=== PATIENT | female | born 1980 | race Asian ===

== ENCOUNTER 2016-06-22 11:30 | Outpatient (CLI) | payer OTHER | END 2016-06-22 23:59 | DX: M25.50 Pain in unspecified joint (principal) ==

== ENCOUNTER 2016-07-30 08:08 | Outpatient (CLI) | payer OTHER | END 2016-07-30 08:09 | disposition home or self-care (01) | DX: T83.89XA Other specified complication of genitourinary prosthetic devices, implants and grafts, initial encounter (principal) ==

== ENCOUNTER 2017-03-28 09:55 | Outpatient (CLI) | payer OTHER ==
--- NOTE | 2017-03-28 11:17 | Ultrasound Report ---
PELVIC ULTRASOUND: 03/28/2017 COMPARISON: Pelvic ultrasound 07/30/2016. INDICATION: Evaluate intrauterine device for possible extrauterine location. TECHNIQUE: Sonographic evaluation of the pelvis was performed using transabdominal and endovaginal t echnique. FINDINGS: The uterus is retroverted. Intrauterine device is posterior to the anterior uterus fundus-body. Please note that because the ut erus is retroverted, the anterior uterus is located posteriorly in relation to the patient's pelvis. Also, the uterus is canted to the patient's right, such that the intrauterine device appears to be i ntraperitoneal, posterior to the uterus, and to the left of the uterus. There is no free fluid in the pelvis. The uterus appears otherwise unremarkable without masses. The endometrial stripe is normal in thickn ess measuring 6 mm. The ovaries are grossly unremarkable with normal color Doppler flow. IMPRESSION: INTRAUTERINE DEVICE APPEARS TO BE IN AN INTRAPERITONEAL LOCATION POSTERIOR AND TO THE LE FT OF THE UTERUS. HOWEVER, THIS MAY BE BETTER VISUALIZED ON CT IF CLINICALLY DESIRED. JOB #: [id number] EXT JOB #:[id number]
== END 2017-03-28 09:56 | disposition home or self-care (01) ==
LOC: DI 09:55
PROVIDERS: ATTEND Obstetrics & Gynecology
DX: Z30.431 Encounter for routine checking of intrauterine contraceptive device (principal)
CPT/HCPCS: 76830; 76856

== ENCOUNTER 2017-04-26 11:15 | Outpatient (CLI) | payer OTHER | END 2017-04-26 11:16 | disposition home or self-care (01) | LOC: LAB.R 11:15 | PROVIDERS: ATTEND Obstetrics & Gynecology | DX: B37.3 Candidiasis of vulva and vagina (principal) | CPT/HCPCS: 87480; 87510; 87660 ==

== ENCOUNTER 2017-05-22 10:50 | Day surgery (SDC) | payer OTHER ==
--- NOTE | 2017-05-20 15:53 | PREOP HISTORY & PHYSICAL ---
A 36-year-old G1, P1-0-0-1. DATE OF ADMISSION AND SURGERY: 05/22/2017 HISTORY OF PRESENT ILLNESS: Alessandro is a patient of Xanedr Pierson formerly [facility]. After delivery of her son, Alessandro has been noting low back pain. A lumbar x-ray revealed misplaced intrauterine device. This IUD was placed at her 6-week visit. Then, had an 03/28/2017 pelvic ultrasound which revealed a retroverted uterus and the IUD is located posterior and left to the uterus. There is no free fluid. Endometrial stripe measured 6 mm. Ovaries are grossly normal. Discussed with them my recommendation is to proceed with a laparoscopic removal of her Mirena IUD. I discussed with her the risks, benefits, alternatives, indications, expectations of surgery, including our discussion for the risk of hemorrhage, infection and damage to surrounding organs, which may be an inadvertent laceration. Cauterization or ligation of the adjacent ureters, intestines and bladder. After Alessandro and her , Rian's questions were answered to their satisfaction, she verbalized her desire to proceed with surgery. Consent forms have been signed. Currently, Alessandro doing well, but does note that she has a continued vaginitis that was addressed at her last meeting. An affirm returned 2 days after her appointment with me, which showed bacterial vaginosis. A prescription for Flagyl was called in to [facility], but apparently her pharmacy of choice was [facility]. I did fax a new prescription of Flagyl to [facility] for Alessandro. PAST MEDICAL HISTORY: None. She denies any hypertension, diabetes or thyroid disorder. PAST SURGICAL HISTORY: None. ALLERGIES: PEANUTS AND WHEN SHE HAS A RASH AROUND HER MOUTH. MEDICATIONS: None. SOCIAL HISTORY: She denies any tobacco, alcohol or illicit drug use. Alessandro and Rian have a little boy named Ras. PAST SURGICAL HISTORY: 1. Term spontaneous vaginal delivery, weighing 7 pounds 9 ounces. She is considering having more children. Currently her grandmother is taking care of Ras. PAST GYNECOLOGICAL HISTORY: Within normal limits and the last one was done in [place]. She denies any sexually transmitted diseases. With respect to contraception, she does desire to use condoms. FAMILY HISTORY: She denies any female carcinomas. REVIEW OF SYSTEMS: Negative unless otherwise stated. PHYSICAL EXAMINATION VITAL SIGNS: Height is 60 inches. Blood pressure 118/58. Weight is 131 pounds. BMI is 25.7. GENERAL: Alessandro is a well-developed, well-nourished, [place] female in no apparent distress. She is alert and oriented x3. Alessandro does speak limited Bulgarian and is currently using her , Rian, to translate. HEENT: Within normal limits. HEART: Rate is regular. No murmurs or rubs. PULMONARY: Clear to auscultation bilaterally. ABDOMEN: Soft, nontender. No peritoneal signs. ASSESSMENT AND PLAN: 1. A 36-year-old G1, P1-0-0-1. 2. Malpositioned intrauterine device located intraabdominally. PLAN: 1. We will proceed to a laparoscopic removal of her Mirena IUD. 2. Consent forms have been signed. 3. Handwritten prescription for Vicodin is available to [facility] and prescriptions for ibuprofen and Tylenol have been faxed to [facility]' for postoperative pain management. In addition, a prescription for Flagyl has been sent to [facility] to treat her bacterial Vaginosis/ 4. [facility] to see me in two weeks for routine postoperative examination. CC: Beatriz Álvarez TD: 05/20/2017 13:56 MTDClara
[2017-05-22] MEDS ORDERED: CELECOXIB 100 MG CAPSULE PO ONE (11:03)
[2017-05-22] MEDS ORDERED: LACTATED RINGERS 1,000 ML IV ONE ×2 (11:25→12:58)
[2017-05-22] MEDS ORDERED: MIDAZOLAM 2 MG/2 ML VIAL IVP ONE (12:00)
[2017-05-22] MEDS ORDERED: NEOSTIGMINE 1 MG/1 ML 10 ML MDV IVP ONE (12:00)
[2017-05-22] MEDS ORDERED: GLYCOPYRROLATE 1 MG/5 ML VIAL IVP ONE (12:00)
[2017-05-22] MEDS ORDERED: PROPOFOL 200 MG/20 ML VIAL IVP ONE (12:00)
[2017-05-22] MEDS ORDERED: ONDANSETRON 4 MG/2 ML VIAL IVP ONE (12:00)
[2017-05-22] MEDS ORDERED: SUCCINYLCHOLINE 200 MG/10 ML VIAL IVP ONE (12:00)
[2017-05-22] MEDS ORDERED: fentaNYL 100 MCG/2 ML VIAL IVP ONE (12:00)
[2017-05-22] MEDS ORDERED: ePHEDrine 50 MG/ML AMP IVP ONE (12:00)
[2017-05-22] MEDS ORDERED: KETOROLAC 30 MG/ML VIAL IVP ONE (12:00)
[2017-05-22] MEDS ORDERED: LIDOCAINE-MPF 2% 5 ML VIAL IM ONE (12:00)
[2017-05-22] MEDS ORDERED: ROCURONIUM 50 MG/5 ML VIAL IVP ONE (12:00)
[2017-05-22] MEDS ORDERED: DEXAMETHASONE 4 MG/ML VIAL IVP ONE (12:00)
[2017-05-22] MEDS ORDERED: LIDOCAINE 1%-EPI 1:100000 20 ML MDV SUBQ ONE (12:06)
--- NOTE | 2017-05-22 12:38 | OPERATIVE REPORT ---
Operative Report - Other Other Information/Narrative: Date of Operation: 05/22/2017 Surgeon: Shivani Scanlon DO FACOG Supervisor Farm Equipment Maintenance: None Firestopper Technician: Herminio Nguyễn CRNA Anesthesia: GET Pre-Op Dx: 1. 36 yo 2. Misplaced Mirena IUD Post-op Dx: 1. 36 yo 2. Misplaced Mirena IUD Procedure: Laparoscopic removal of intraabdominal Mirena IUD Findings: Intraabdominally placed Mirena IUD. String still in the uterus at the left anterior fundal portion of the uterus. No trauma or adhesions seen. Hemostatically stable. Specimens: Mirena IUD Drains: None EBL: None Complications: None Dictation: [id number]
[2017-05-22] MEDS ORDERED: HYDROcod/ACETAM 5/325 MG TABLET ONE (13:14)
[2017-05-22 14:47] VITALS: BP 114/68
--- NOTE | 2017-05-23 09:55 | OPERATIVE REPORT ---
DATE OF OPERATION: 05/22/2017 SURGEON: Shivani Pérez DO, REGULATORY ADMINISTRATOR: None. PAINTER HELPER SIGN Herminio Nguyễn CRNA. ANESTHESIA: General endotracheal tube. PREOPERATIVE DIAGNOSES: 1. A 36-year-old G1, P1-0-0-1. 2. Misplaced Mirena intrauterine device. POSTOPERATIVE DIAGNOSIS: 1. A 36-year-old G1, P1-0-0-1. 2. Misplaced Mirena intrauterine device. PROCEDURE: Laparoscopic removal of intra-abdominally placed Mirena IUD. FINDINGS: 1. Intraabdominally placed Mirena IUD string protruding from the uterus at the left anterior fundal portion of the uterus. 2. No obvious trauma or adhesions from the Mirena IUD placement. The uterus hemostatically stable after removal of IUD strings. SPECIMENS REMOVED: Mirena IUD. DRAINS: None. ESTIMATED BLOOD LOSS: None. COMPLICATIONS: None. BRIEF HISTORY: Alessandro presented to me with a desire of removal of her Mirena IUD. Alessandro had a history of back pain and a x-ray of her pelvis revealed that the Mirena IUD was misplaced. It was initially placed approximately 6 weeks after her delivery of her son. Ultrasound revealed that the IUD is located to the left and posterior of the uterus. I recommended that we proceed to a laparoscopic removal of the Mirena IUD. I discussed with Alessandro, the risks, benefits, alternatives, indications, expectations of surgery. Included discussion of the risk of hemorrhage, infection and damage to surrounding organs, which may be an inadvertent laceration cauterization or ligation of the adjacent intestine, bladder and ureters. After Alessandro's questions were answered to her satisfaction, she verbalized her desire to proceed with surgery. Consent forms have been signed. OPERATION IN DETAIL: Alessandro was identified and consented, taken to the operating room where IV access was already in place. She was then given sequential compression devices which were placed on lower extremities and turned on. Alessandro was then given satisfactory general endotracheal tube anesthesia, this was provided per Herminio Nguyễn. Alessandro was then prepped and draped in normal sterile fashion in the supine position. Antibiotics were not indicated in this case. A time-out was performed, which correctly identifying the patient, site of procedure and the procedure itself. Three laparoscopic port sites, all of 5 mm length, were first identified in the subumbilical fold, right lower quadrant and left lower quadrant. The lower quadrant sites were identified by first identifying the anterior superior iliac spines and then moving 2 fingerbreadths superior and medial to the spot. A total of 10 mL of 1 percent lidocaine was used to inject these sites. Entrance in the abdomen was made directly using the Visiport trocar. CO2 gas was used to insufflate the abdomen. Inspection of the pelvis revealed that the Mirena IUD was located posteriorly to the uterus. The Mirena IUD string was protruding from the left anterior fundal portion of the uterus. There was no obvious trauma to the intestines or bladder. The IUD string was gently grasped and pulled until it was removed in its entirety. The uterus, ovaries and fallopian tubes, otherwise were within normal limits. The Mirena IUD string was then grasped and the IUD itself was then removed through the trocar sleeve. Reinspection of the pelvis found to be hemostatically stable. At this point in time, the procedure had been completed. CO2 gas was allowed to egress into the atmospheres. Thus relieving the pneumoperitoneum. All instruments were removed out of the abdomen and the 3 trocar sites were reapproximated with 4-0 Monocryl and Dermabond was placed on top of the incisions. Alessandro was taken back to recovery room in stable condition. She will be discharged home today after all postoperative criteria are met. All sponge, lap , and needle counts were correct x2 as per nurse. TD: 05/22/2017 13:12 DALE
--- NOTE | 2017-05-23 09:57 | PROCEDURE REPORT ---
[address] [address] DOS: 05/22/2017 Physician: Shivani Scanlon DO DATE OF OPERATION: 05/22/2017 SURGEON: Shivani Pérez DO, DIRECTOR NURSES' REGISTRY: None. ADMINISTRATION DEAN Herminio Nguyễn CRNA. ANESTHESIA: General endotracheal tube. PREOPERATIVE DIAGNOSES: 1. A 36-year-old G1, P1-0-0-1. 2. Misplaced Mirena intrauterine device. POSTOPERATIVE DIAGNOSIS: 1. A 36-year-old G1, P1-0-0-1. 2. Misplaced Mirena intrauterine device. PROCEDURE: Laparoscopic removal of intra-abdominally placed Mirena IUD. FINDINGS: 1. Intraabdominally placed Mirena IUD string protruding from the uterus at the left anterior fundal p ortion of the uterus. 2. No obvious trauma or adhesions from the Mirena IUD placement. The uterus hemostatically stable af ter removal of IUD strings. SPECIMENS REMOVED: Mirena IUD. DRAINS: None. ESTIMATED BLOOD LOSS: None. COMPLICATIONS: None. BRIEF HISTORY: Alessandro presented to me with a desire of removal of her Mirena IUD. Alessandro had a histor y of back pain and a x-ray of her pelvis revealed that the Mirena IUD was misplaced. It was initially placed approx imately 6 weeks after her delivery of her son. Ultrasound revealed that the IUD is located to the left and pos terior of the uterus. I recommended that we proceed to a laparoscopic removal of the Mirena IUD. I discussed with Alessandro, the risks, benefits, alternatives, indications, expectations of surgery. Inc luded discussion of the risk of hemorrhage, infection and damage to surrounding organs, which may be an iman dvertent laceration cauterization or ligation of the adjacent intestine, bladder and ureters. After Alessandro's q uestions were answered to her satisfaction, she verbalized her desire to proceed with surgery. Consent forms have been signed. OPERATION IN DETAIL: Alessandro was identified and consented, taken to the operating room where IV access was already in place. She was then given sequential compression devices which were placed on lower extremities a nd turned on. Alessandro was then given satisfactory general endotracheal tube anesthesia, this was provided per Herminio osman. Alessandro was then prepped and draped in normal sterile fashion in the supine position. Antibiotics were not i ndicated in this case. A time-out was performed, which correctly identifying the patient, site of procedure and the procedure itself. Three laparoscopic port sites, all of 5 mm length, were first identified in the subumbilical fold, ri ght lower quadrant and left lower quadrant. The lower quadrant sites were identified by first identifying the anterior superior iliac spines and then moving 2 fingerbreadths superior and medial to the spot. A total of 1 0 mL of 1 percent lidocaine was used to inject these sites. Entrance in the abdomen was made directly using th e Visiport trocar. CO2 gas was used to insufflate the abdomen. Inspection of the pelvis revealed that the Arianna na IUD was located posteriorly to the uterus. The Mirena IUD string was protruding from the left anterior gray l portion of the uterus. There was no obvious trauma to the intestines or bladder. The IUD string was gently gra sped and pulled until it was removed in its entirety. The uterus, ovaries and fallopian tubes, otherwise were within normal limits. The Mirena IUD string was then grasped and the IUD itself was then removed through the troca r sleeve. Reinspection of the pelvis found to be hemostatically stable. At this point in time, the procedure had been completed. CO2 gas was allowed to egress into the atmo spheres. Thus relieving the pneumoperitoneum. All instruments were removed out of the abdomen and the 3 trocar sit es were reapproximated with 4-0 Monocryl and Dermabond was placed on top of the incisions. Alessandro was taken back to recovery room in stable condition. She will be discharged home today after a ll postoperative criteria are met. All sponge, lap, and needle counts were correct x2 as per nurse. cc: Shivani Scanlon, Dictating Provider: Shivani Scanlon DO MSC/TONIO TD: 05/22/2017 14:12
== END 2017-05-22 10:51 | disposition home or self-care (01) ==
LOC: SDS 10:50
PROVIDERS: ATTEND Obstetrics & Gynecology
PROC: 0UPD4HZ Removal of Contraceptive Device from Uterus and Cervix, Percutaneous Endoscopic Approach (ICD-10-PCS; principal; 2017-05-22 12:25)
DX: T83.32XA Displacement of intrauterine contraceptive device, initial encounter (principal)
CPT/HCPCS: 49329; 84703; A9270; J7120

== ENCOUNTER 2020-09-15 08:00 | Outpatient (CLI) | payer OTHER | END 2020-09-15 23:59 | LOC: LAB.N 08:00 | PROVIDERS: ATTEND Family Medicine | DX: N39.0 Urinary tract infection, site not specified (principal) | CPT/HCPCS: 87086 ==